=== PATIENT | female | born 1960 | race Caucasian/White ===

== ENCOUNTER 2017-10-23 12:13 | Day surgery (SDC) | payer OTHER ==
[~2017-10-23 12:13] MED LIST: CEFAZOLIN 1 GM INJ
[2017-10-23] MEDS ORDERED: BUPIVACAINE 0.5% (SDV) 30 ML INJ (13:15)
[2017-10-23] MEDS ORDERED: PROPOFOL 0 ML (13:34)
[2017-10-23] MEDS ORDERED: FENTAnyl 50 MCG/ML VIAL (13:34)
[2017-10-23] MEDS ORDERED: MIDAZOLAM 1 MG/ML 2 ML INJ (13:34)
[2017-10-23] MEDS ORDERED: LABETALOL HCL 20MG INJ (13:51)
[2017-10-23] MEDS: LIDOCAINE 1% (MPF) 30 ML INJ (13:56)
[2017-10-23] MEDS: BUPIVACAINE 0.25% (MPF) 30 ML INJ (13:56)
[2017-10-23] MEDS ORDERED: METOCLOPRAMIDE 10 MG INJ IV (14:00)
[2017-10-23] MEDS ORDERED: FENTAnyl 50 MCG/ML VIAL IV ×3 (14:00)
[2017-10-23] MEDS ORDERED: DIPHENHYDRAMINE 50 MG INJ IV (14:00)
[2017-10-23] MEDS ORDERED: MEPERIDINE 25 MG INJ IV (14:00)
[2017-10-23] MEDS ORDERED: ONDANSETRON 4 MG INJ IV (14:00)
[2017-10-23] MEDS ORDERED: OXYCODONE/ACETAMINOPHEN (5/325) TAB PO ×2 (14:00)
[2017-10-23] MEDS ORDERED: EPHEDrine SULFATE 50 MG/5 ML SYG IV (14:00)
[2017-10-23] MEDS ORDERED: MIDAZOLAM 1 MG/ML 2 ML INJ IV (14:00)
[2017-10-23] MEDS ORDERED: hydrALAzine 20 MG INJ IV (14:00)
[2017-10-23] MEDS ORDERED: LABETALOL HCL 20MG INJ IV (14:00)
[2017-10-23] MEDS ORDERED: HYDROCODONE/APAP (5/325) TAB PO (15:00)
== END 2017-10-23 15:25 | disposition home or self-care (01) ==
LOC: SDS 12:13
DX: M72.0 Palmar fascial fibromatosis [Dupuytren] (principal); I10 Essential (primary) hypertension; E11.9 Type 2 diabetes mellitus without complications; E78.5 Hyperlipidemia, unspecified
CPT/HCPCS: 26111; 82962; 88307